=== PATIENT | female | born 2000 | race Caucasian/White ===

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

== ENCOUNTER 2025-05-02 12:02 | Emergency (ER) | payer OTHER ==
[~2025-05-02] VITALS: Ht 165.1 cm; Wt 79.5 kg
[~2025-05-02 12:02] MED LIST: CEPH-558 PO
[2025-05-02 12:19] VITALS: BP 112/74; PULSE 75; RESP 18; TEMP 98.1; O2SAT 98
[2025-05-02 12:54] LABS: PLATELET COUNT (AUTO) 284 K/uL (150-450); RED BLOOD CELL COUNT(AUTO) 4.98 MIL/uL (4.00-5.20); RED CELL DISTRIBUTION WIDTH 14.6 % (11.5-14.5); WHITE BLOOD COUNT (AUTO) 10.2 K/uL (4.5-11.0)
[2025-05-02 13:03] LABS: CALCIUM, TOTAL 8.9 mg/dL (8.8-10.5); CREATININE 0.70 mg/dL (0.60-1.30); GLOMERULAR FILTR. RATE CALC > 60 mL/min (>60); GLUCOSE,RANDOM 90 mg/dL (70-110); SODIUM SERUM 136 mmol/L (136-145); UREA NITROGEN, BLOOD 13 mg/dL (7-18)
[2025-05-02 13:13] LABS: TROPONIN I-HIGH SENSITIVITY Less Than 4 ng/L (<51)
[2025-05-02] MEDS: MAG HYDROX/ALUMINUM HYD/SIMETH 30 ML SUSPENSION UDCUP PO ONE (14:23)
[2025-05-02] MEDS: ACETAMINOPHEN 500 MG TABLET PO ONE (14:23)
[2025-05-02] MEDS: FAMOTIDINE 20 MG TABLET PO ONE (14:23)
[2025-05-02 14:38] LABS: APPEARANCE,URINE CLEAR (CLEAR); GLUCOSE, URINE (UA) NEGATIVE (NEGATIVE); LEUKOCYTE ESTERASE ,URINE NEGATIVE (NEGATIVE); NITRATE,URINE NEGATIVE (NEGATIVE); OCCULT BLOOD,URINE TRACE (NEGATIVE); SPECIFIC GRAVITIY, URINE 1.013 (1.003-1.030)
[2025-05-02 15:28] LABS: ASPARTATE AMINOTRANSFERASE 12.0 U/L (15-37); TOTAL PROTEIN, SERUM 7.3 g/dL (6.4-8.2)
[2025-05-02] MEDS ORDERED: OMEP-148 PO (15:34)
== END 2025-05-02 15:52 | disposition home or self-care (01) ==
LOC: EMS 12:04
DX: R10.13 Epigastric pain (principal); R10.11 Right upper quadrant pain; R19.7 Diarrhea, unspecified; Z79.899 Other long term (current) drug therapy
CPT/HCPCS: 71045; 76705; 80048; 80076; 81001; 83690; 84484; 84703; 85025; 93005; 99285; 36415-L1; 36415-TC